=== PATIENT | male | born 1990 | race Caucasian/White ===

== ENCOUNTER 2019-01-14 18:37 | Emergency (ER) | payer SELFPAY ==
[~2019-01-14] VITALS: Ht 172.7 cm; Wt 72.6 kg
[2019-01-14 18:39] VITALS: BP_SYST 127
[2019-01-14 19:20] VITALS: BP_SYST 127
== END 2019-01-14 19:20 ==
LOC: SED 18:37
DX: S40.861A Insect bite (nonvenomous) of right upper arm, initial encounter (principal); S70.261A Insect bite (nonvenomous), right hip, initial encounter; R03.0 Elevated blood-pressure reading, without diagnosis of hypertension; W57.XXXA Bitten or stung by nonvenomous insect and other nonvenomous arthropods, initial encounter; Y93.89 Activity, other specified; Y92.89 Other specified places as the place of occurrence of the external cause; Y99.8 Other external cause status
CPT/HCPCS: 99283